=== PATIENT | male | born 1975 | race Caucasian/White ===

== ENCOUNTER 2021-07-06 14:12 | Inpatient (IN) | payer MEDICAID ==
[2021-07-06] MEDS ORDERED: LORazepam 2 MG/ML VIAL IV PRN (15:20)
[2021-07-07 05:53] LABS: Basophils # (Auto) 0.1 K/mm3 (0.0-0.1); Basophils % (Auto) 1.3 % (0.0-1.8); Eosinophils # (Auto) 0.2 K/mm3 (0.0-0.4); Hematocrit 38.7 % (35.5-45.6); Hemoglobin 13.3 gm/dl (11.8-15.2); Lymphocytes # (Auto) 1.5 K/mm3 (1.2-5.4); Lymphocytes % (Auto) 31.6 % (13.4-35.0); Mean Corpuscular HGB Conc 34 % (32-34); Mean Corpuscular Volume 89 fl (84-94); Monocytes # (Auto) 0.4 K/mm3 (0.0-0.8); Platelet Count 274 K/mm3 (140-440); Red Blood Count 4.36 M/mm3 (3.65-5.03); Red Cell Distribution Width 13.7 % (13.2-15.2)
[2021-07-07 06:17] LABS: Alanine Aminotransferase 15 units/L (7-56); Albumin 3.6 g/dL (3.9-5); Blood Urea Nitrogen 11 mg/dL (9-20); Chol/HDL Ratio 3.29 %; HDL Cholesterol 41 mg/dL (40-59); Hemolysis Index 5; LDL Cholesterol,Direct 83 mg/dL (50-130)
[2021-07-07 06:18] LABS: BUN/Creatinine Ratio 16
[2021-07-07 07:37] LABS: Hepatitis C Virus Antibody Non-Reactive (NonReactive)
[2021-07-07 08:13] LABS: Hepatitis B Surface Antigen Nonreactive (Negative)
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
[2021-07-07] MEDS ORDERED: NON-FORMULARY EACH (Albuterol Sulfate [Proair Respiclick] 90 MCG Aer.Pow.Ba) INHALATION PRN (09:25)
[2021-07-07] MEDS: DIVALPROEX DR 500 MG TAB PO SCH ×2 (11:02→21:36)
[2021-07-07] MEDS: BENZTROPINE 1 MG TAB PO SCH ×2 (11:02→21:36)
[2021-07-07] MEDS: NICOTINE 14 MG/24 HR PATCH TD SCH (11:02)
[2021-07-07] MEDS ORDERED: ALBUTEROL 2.5 MG/3 ML NEBU IH PRN (12:00)
[2021-07-07] MEDS: ACETAMINOPHEN 325 MG TAB PO PRN (21:36)
[2021-07-07] MEDS ORDERED: NON-FORMULARY EACH (Olanzapine [Zyprexa] 15 MG Tablet) PO SCH (22:00)
[2021-07-07] MEDS ORDERED: traZODone 50 MG TAB PO SCH (22:00)
[2021-07-08 10:47] VITALS: BP 110/82
[2021-07-08] MEDS: NICOTINE 14 MG/24 HR PATCH TD SCH (10:47)
[2021-07-08] MEDS: DIVALPROEX DR 500 MG TAB PO SCH (10:47)
[2021-07-08] MEDS: BENZTROPINE 1 MG TAB PO SCH (10:47)
[2021-07-08] MEDS: ACETAMINOPHEN 325 MG TAB PO PRN (11:43)
--- NOTE | 2021-07-08 13:34 | Progress Note ---
Subjective Date of service: 07/08/21 Subjective Comment: 07/08/2021: The patient reports doing well. He reports sleep and appetite as good. He is focused on discharge. He denies any current suicidal /homicidal ideation and denies hallucinations. REVIEW OF SYSTEMS Constitutional: Negative for weight loss ENT: Negative for stridor Respiratory: Negative for cough or hemoptysis All other systems reviewed and are negative MENTAL STATUS EXAMINATION General Appearance and Behavior: Age appropriate, good hygiene, wearing appropriate clothes, fair eye contact Cooperation: Participating/engaged Psychomotor Behavior: Psychomotor normal Mood: "good" Affect and affective range: Congruent to stated mood Thought Process: logical Thought Content:Not suicidal Speech: normal tone and pace Suicidal Ideation:Denies Homicidal Ideation: Denies Hallucinations: Denies Impulse Control: Questionable Insight and Judgment: Limited insight and judgment Memory: Normal Attention: Normal Orientation: Alert and oriented Assessment and Plan (1) Paranoid Schizophrenia Current Visit: Yes Status: Acute Treatment Plan Patient admitted for inpatient psychiatric evaluation, medication adjustment and close monitoring The patient's behavior, mood, sleep and appetite will be closely monitored. Patient enrolled in individual and group therapeutic sessions and encouraged to attend. Patient provided with a safe and structured environment. Patient's physical health needs will be addressed by the Hospitalist. Hospitalist Consulted Labs including CBC, CMP, Lipid profile and Hemoglobin A1C levels ordered for baseline reference Social Assessment will be completed and the Litigator will work with patient and family to ensure a suitable and safe disposition Medication adjustment will be made as clinically indicated Continued Home medications Usual Wellness Spiritism/Preservation: - Start Trazodone 50 mg po QHS & 50 mg po QHS PRN between 10 PM & 2 AM for insomnia - Start Melatonin 5 mg po QHS to promote circadian rhythm The patient agreed on the treatment plan, understood the risk, benefit, alternative treatment, potential consequence of no treatment, and gave informed consent. Estimated days: 7 Post hospital care: primary care provider, psychiatric provider Case staffed with Dr. Mora Reaction to Hospitalization: Accepting Medications and Allergies Allergies Allergy/AdvReac Type Severity Reaction Status Date / Time Penicillins Allergy Unknown Verified 07/07/21 10:55 risperidone Allergy Unknown Verified 07/07/21 10:55 shellfish derived Allergy Unknown Verified 07/07/21 10:55 Home Medications Medication Instructions Recorded Confirmed Last Taken Type Albuterol Sulfate [Proair 90 mcg INHALATION Q4HR PRN 07/07/21 07/07/21 Unknown History Respiclick] Benztropine [Cogentin] 1 mg PO BID 07/07/21 07/07/[address] [Depakote Dr] 500 mg PO BID 07/07/21 07/07/21 Unknown History OLANZapine [Zyprexa] 15 mg PO HS 07/07/21 07/07/21 Unknown History haloperidoL [Haldol] 5 mg PO BID 07/07/21 07/07/21 Unknown History traZODone [Desyrel] 50 mg PO HS 07/07/21 07/07/21 Unknown History Active Meds: Active Medications Acetaminophen (Acetaminophen 325 Mg Tab) 650 mg PO Q6H PRN PRN Reason: Pain, Mild (1-3) Last Admin: 07/08/21 11:43 Dose: 650 mg Documented by: Albuterol (Albuterol 2.5 Mg/3 Ml Nebu) 2.5 mg IH Q4HRT PRN PRN Reason: Shortness Of Breath, WHEEZING Benztropine Mesylate (Benztropine 1 Mg Tab) 1 mg PO BID [facility] Last Admin: 07/08/21 10:47 Dose: 1 mg Documented by: Divalproex Sodium (Divalproex Dr 500 Mg Tab) 500 mg PO BID [facility] Last Admin: 07/08/21 10:47 Dose: 500 mg Documented by: Lorazepam (Lorazepam 2 Mg/Ml Vial) 2 mg IV Q4H PRN PRN Reason: Agitation Nicotine (Nicotine 14 Mg/24 Hr Patch) 14 mg TD DAILY [facility] Last Admin: 07/08/21 10:47 Dose: 14 mg Documented by: Olanzapine (Olanzapine 7.5 Mg Tab) 15 mg PO QHS [facility] Last Admin: 07/07/21 21:36 Dose: 15 mg Documented by: Trazodone HCl (Trazodone 50 Mg Tab) 50 mg PO [facility] Last Admin: 07/07/21 21:36 Dose: 50 mg Documented by: Results - Results Labs/Vitals: Laboratory Last Values WBC 4.8 K/mm3 (4.5-11.0) 07/07/21 05:36 RBC 4.36 M/mm3 (3.65-5.03) 07/07/21 05:36 Hgb 13.3 gm/dl (11.8-15.2) 07/07/21 05:36 Hct 38.7 % (35.5-45.6) 07/07/21 05:36 MCV 89 fl (84-94) 07/07/21 05:36 MCH 31 pg (28-32) 07/07/21 05:36 MCHC 34 % (32-34) 07/07/21 05:36 RDW 13.7 % (13.2-15.2) 07/07/21 05:36 Plt Count 274 K/mm3 (140-440) 07/07/21 05:36 Lymph % (Auto) 31.6 % (13.4-35.0) 07/07/21 05:36 [facility] % (Auto) 8.0 % (0.0-7.3) H 07/07/21 05:36 Eos % (Auto) 4.0 % (0.0-4.3) 07/07/21 05:36 Baso % (Auto) 1.3 % (0.0-1.8) 07/07/21 05:36 Lymph # (Auto) 1.5 K/mm3 (1.2-5.4) 07/07/21 05:36 [facility] # (Auto) 0.4 K/mm3 (0.0-0.8) 07/07/21 05:36 Eos # (Auto) 0.2 K/mm3 (0.0-0.4) 07/07/21 05:36 Baso # (Auto) 0.1 K/mm3 (0.0-0.1) 07/07/21 05:36 Seg Neutrophils % 55.1 % (40.0-70.0) 07/07/21 05:36 Seg Neutrophils # 2.7 K/mm3 (1.8-7.7) 07/07/21 05:36 Sodium 142 mmol/L (137-145) 07/07/21 05:36 Potassium 4.2 mmol/L (3.6-5.0) 07/07/21 05:36 Chloride 104.9 mmol/L (98-107) 07/07/21 05:36 Carbon Dioxide 26 mmol/L (22-30) 07/07/21 05:36 Anion Gap 15 mmol/L 07/07/21 05:36 BUN 11 mg/dL (9-20) 07/07/21 05:36 Creatinine 0.7 mg/dL (0.8-1.3) L 07/07/21 05:36 Estimated GFR > 60 ml/min 07/07/21 05:36 BUN/Creatinine Ratio 16 % 07/07/21 05:36 Glucose 142 mg/dL (75-100) H 07/07/21 05:36 POC Glucose 101 mg/dL (70-105) 07/07/21 04:13 Calcium 9.0 mg/dL (8.4-10.2) 07/07/21 05:36 Total Bilirubin 0.30 mg/dL (0.1-1.2) 07/07/21 05:36 AST 18 units/L (5-40) 07/07/21 05:36 ALT 15 units/L (7-56) 07/07/21 05:36 Alkaline Phosphatase 47 units/L (35-129) 07/07/21 05:36 Total Protein 6.4 g/dL (6.3-8.2) 07/07/21 05:36 Albumin 3.6 g/dL (3.9-5) L 07/07/21 05:36 Albumin/Globulin Ratio 1.3 % 07/07/21 05:36 Triglycerides 98 mg/dL (2-149) 07/07/21 05:36 Cholesterol 135 mg/dL (50-199) 07/07/21 05:36 LDL Cholesterol Direct 83 mg/dL (50-130) 07/07/21 05:36 HDL Cholesterol 41 mg/dL (40-59) 07/07/21 05:36 Cholesterol/HDL Ratio 3.29 % 07/07/21 05:36 TSH 0.895 mlU/mL (0.270-4.200) 07/07/21 05:36 Hepatitis A IgM Ab Non-reactive (NonReactive) 07/07/21 05:36 Hep Bs Antigen Nonreactive (Negative) 07/07/21 05:36 Hep B Core IgM Ab Non-reactive (NonReactive) 07/07/21 05:36 Hepatitis C Antibody Non-reactive (NonReactive) 07/07/21 05:36 Last Vital Signs Temp 98.7 F 07/08/21 09:58 Pulse 70 07/08/21 09:58 Resp 18 07/08/21 09:58 BP 110/82 07/08/21 09:58 Pulse Ox 98 07/08/21 09:58
--- NOTE | 2021-07-08 15:11 | Consultation ---
History of Present Illness - Reason for Consult Consult date: 07/08/21 Asthma Requesting physician: KATELYN AMBROCIO - History of Present Illness Patient with schizophrenia, schizoaffective disorder admitted to Psych Unit. The hospitalist service has been consulted to manage co-morbidities. He has history of asthma on Albuterol prn. He denies history of hypertension. Currently no chest pain, no shortness of breath. Past History Past Medical History: other (Asthma) Past Surgical History: Other (Abnominal surgery, details unclear) Social history: full code Family history: hypertension Medications and Allergies Allergies Allergy/AdvReac Type Severity Reaction Status Date / Time Penicillins Allergy Unknown Verified 07/07/21 10:55 risperidone Allergy Unknown Verified 07/07/21 10:55 shellfish derived Allergy Unknown Verified 07/07/21 10:55 Home Medications Medication Instructions Recorded Confirmed Last Taken Type Albuterol Sulfate [Proair 90 mcg INHALATION Q4HR PRN 07/07/21 07/07/21 Unknown History Respiclick] Benztropine [Cogentin] 1 mg PO BID 07/07/21 07/07/[address] [Depakote Dr] 500 mg PO BID 07/07/21 07/07/21 Unknown History OLANZapine [Zyprexa] 15 mg PO HS 07/07/21 07/07/21 Unknown History haloperidoL [Haldol] 5 mg PO BID 07/07/21 07/07/21 Unknown History traZODone [Desyrel] 50 mg PO HS 07/07/21 07/07/21 Unknown History Active Meds: Active Medications Acetaminophen (Acetaminophen 325 Mg Tab) 650 mg PO Q6H PRN PRN Reason: Pain, Mild (1-3) Last Admin: 07/08/21 11:43 Dose: 650 mg Documented by: Albuterol (Albuterol 2.5 Mg/3 Ml Nebu) 2.5 mg IH Q4HRT PRN PRN Reason: Shortness Of Breath, WHEEZING Benztropine Mesylate (Benztropine 1 Mg Tab) 1 mg PO BID ON LICENSE OF [facility] Last Admin: 07/08/21 10:47 Dose: 1 mg Documented by: Divalproex Sodium (Divalproex Dr 500 Mg Tab) 500 mg PO BID ON [facility] OF [facility] Last Admin: 07/08/21 10:47 Dose: 500 mg Documented by: Lorazepam (Lorazepam 2 Mg/Ml Vial) 2 mg IV Q4H PRN PRN Reason: Agitation Nicotine (Nicotine 14 Mg/24 Hr Patch) 14 mg TD DAILY ON [facility] OF [facility] Last Admin: 07/08/21 10:47 Dose: 14 mg Documented by: Olanzapine (Olanzapine 7.5 Mg Tab) 15 mg PO QHS ON [facility] OF [facility] Last Admin: 07/07/21 21:36 Dose: 15 mg Documented by: Trazodone HCl (Trazodone 50 Mg Tab) 50 mg PO HS ON [facility] OF [facility] Last Admin: 07/07/21 21:36 Dose: 50 mg Documented by: Review of Systems All systems: negative (No fever, no chest pain, no shortness of breath. All other systems reviewed and are negative.) Exam - Physical Exam Narrative exam: Gen: Not in acute distress, lying in bed HEENT: Normocephalic, atraumatic Neck: Supple, no JVD Lungs: Clear to auscultation Heart: S1 and S2 reg, no murmurs, rubs or gallop Abd:soft, non-tender, non distended, normal bowel sounds Ext: No edema, clubbing or cyanosis Neuro: Awake, alert, oriented X 3, moves all extremities - Constitutional Vitals: Temp Pulse Resp BP Pulse Ox 98.7 F 70 18 110/82 98 07/08/21 09:58 07/08/21 09:58 07/08/21 09:58 07/08/21 09:58 07/08/21 09:58 Results - Labs CBC & Chem 7: 07/07/21 05:36 07/07/21 05:36 Assessment and Plan Schizophrenia and Schizoaffective disorder Admitted to Psych Asthma Stab;le On Albuterol prn Normal BP He denies history of hypertension, not on any meds and BP stable Thanks for consulting us. Will follow.
[2021-07-08] MEDS ORDERED: ACETAMINOPHEN 325 MG TAB PO ONE (15:33)
== END 2021-07-08 16:40 | disposition left against medical advice (07) | DRG 885 ==
LOC: 3A 14:12 → UNDOADMIN 14:12 → 5A 07-07 03:47
PROVIDERS: ADMIT Psychiatry & Neurology Psychiatry; ATTEND Psychiatry & Neurology Psychiatry
DX: F20.0 Paranoid schizophrenia (principal); Z88.8 Allergy status to other drugs, medicaments and biological substances; Z88.0 Allergy status to penicillin; Z91.013 Allergy to seafood; Z82.49 Family history of ischemic heart disease and other diseases of the circulatory system; J45.909 Unspecified asthma, uncomplicated; Z53.29 Procedure and treatment not carried out because of patient's decision for other reasons
CPT/HCPCS: 36415; 80053; 80061; 80074; 82962; 84443; 85025; G0378; J3246